=== PATIENT | female | born 1980 | race Caucasian/White ===

== ENCOUNTER 2017-09-21 07:45 | Inpatient (IN) | payer BC, OTHER ==
[2017-09-25 11:51] LABS: APPEARANCE,URINE CLEAR; BILIRUBIN,URINE NEGATIVE (NEGATIVE); COLOR,URINE STRAW; GLUCOSE, URINE NEGATIVE (NEGATIVE); KETONES,URINE NEGATIVE (NEGATIVE); LEUKOCYTE ESTERASE,URINE NEGATIVE (NEGATIVE); NITRITE,URINE NEGATIVE (NEGATIVE); PROTEIN,URINE NEGATIVE (NEGATIVE); URINE SPECIFIC GRAVITY 1.003; UROBILINOGEN,URINE NEGATIVE mg/dL (<2.0)
[2017-09-25 12:43] LABS: URINE AMPHETAMINES SCREEN NEGATIVE; URINE BARBITURATES SCREEN NEGATIVE; URINE BENZODIAZEPINES SCREEN NEGATIVE; URINE COCAINE SCREEN NEGATIVE; URINE MARIJUANA (THC) SCREEN NEGATIVE; URINE METHADONE SCREEN NEGATIVE; URINE PHENCYCLIDINE SCREEN NEGATIVE
[2017-09-25 13:01] LABS: ABSOLUTE EOSINOPHILS # (AUTO) 0.1 10^3/uL (0.0-0.6); ABSOLUTE LYMPHOCYTES (AUTO) 1.8 10^3/uL (0.5-4.7); ABSOLUTE MONOCYTES (AUTO) 0.5 10^3/uL (0.1-1.4); ABSOLUTE NEUT (AUTO) 6.1 10^3/uL (1.7-8.2); BASOPHILS % (AUTO) 0.2 % (0-2); EOSINOPHILS % (AUTO) 0.7 % (0-6); HEMATOCRIT 37.5 % (36.0-47.0); HEMOGLOBIN 12.7 g/dL (12.0-15.5); LYMPHOCYTES % (AUTO) 21.7 % (13-45); MEAN CORPUSCULAR HEMOGLOBIN 29.9 pg (27.0-33.4); MEAN CORPUSCULAR HGB CONC 33.9 g/dL (32.0-36.0); MEAN CORPUSCULAR VOLUME 88 fl (80-97); MONOCYTES % (AUTO) 5.6 % (3-13); PLATELET COUNT 156 10^3/uL (150-450); RED BLOOD COUNT 4.25 10^6/uL (3.72-5.28); RED CELL DISTRIBUTION WIDTH 13.9 % (11.5-14.0); SEGMENTED NEUTROPHILS % (AUTO) 71.8 % (42-78); TOTAL CELLS COUNTED % (AUTO) 100 %; WHITE BLOOD COUNT 8.4 10^3/uL (4.0-10.5)
[2017-09-26] MEDS ORDERED: LACTATED RINGERS 1000 ML IV PRN (05:00)
[2017-09-26] MEDS ORDERED: CEFAZOLIN 1 GM/D5W RTU 1 GM/50 ML RTUPB IV PRN (05:00)
[2017-09-26] MEDS ORDERED: LIDOCAINE 0.5% INJ-PF (5 MG/ML) 50 ML SDV SUBCUT PRN (05:00)
[2017-09-26] MEDS ORDERED: ACETAMINOPHEN 325 MG TABLET ONE (05:27)
[2017-09-26] MEDS ORDERED: CEFAZOLIN 1 GM/D5W RTU 1 GM/50 ML RTUPB IV ONE (05:27)
[2017-09-26] MEDS ORDERED: MIDAZOLAM 2 MG/2 ML INJ ONE (07:28)
[2017-09-26] MEDS ORDERED: FENTANYL CITRATE INJ/PF 100 MCG/2 ML AMPUL ONE (07:28)
[2017-09-26] MEDS ORDERED: OXYTOCIN 10 UNIT/ML VIAL ONE (07:28)
[2017-09-26] MEDS ORDERED: EPHEDRINE SULFATE INJ 50 MG/1 ML AMPULE ONE (07:28)
[2017-09-26] MEDS ORDERED: KETOROLAC TROMETHAMINE INJ/PF 30 MG/1 ML SDV ONE ×2 (07:28→09:39)
[2017-09-26] MEDS ORDERED: OXYTOCIN/NORMAL SALINE 20 UNIT/1,000 ML RTUINJ ONE (07:29)
[2017-09-26] MEDS ORDERED: ACETAMINOPHEN 1,000 MG/100 ML RTUPB IV ONE (07:29)
[2017-09-26] MEDS ORDERED: METHYLERGONOVINE MALEATE INJ/PF 0.2 MG/1 ML AMPULE ONE (07:29)
[2017-09-26] MEDS ORDERED: BUPIVACAINE HCL/DEX-WATER/PF 15 MG/2 ML AMPULE ONE (07:32)
--- NOTE | 2017-09-26 07:38 | EKG REPORT ---
SEVERITY:- BORDERLINE ECG - SINUS RHYTHM NONSPECIFIC ST-T CHANGES- INFERIOR LEADS : Confirmed by: Dewayne Fontanez MD 26-Sep-2017 07:38:10
[2017-09-26] MEDS ORDERED: LIDOCAINE 2% INJ-PF (20 MG/ML) 10 ML AMPUL ONE (07:52)
[2017-09-26] MEDS ORDERED: OXYCODONE-ACETAMINOPHEN 5-325 MG TABLET PO PRN ×3 (08:23→09:00)
[2017-09-26] MEDS ORDERED: FENTANYL CITRATE INJ/PF 100 MCG/2 ML AMPUL IV PRN ×3 (08:23)
[2017-09-26] MEDS ORDERED: MEPERIDINE HCL/PF INJ 25 MG/1 ML DISP.SYRIN IV PRN (08:23)
[2017-09-26] MEDS ORDERED: DIPHENHYDRAMINE HCL 50 MG/ML VIAL IV PRN (08:23)
[2017-09-26] MEDS ORDERED: PROMETHAZINE HCL INJ 25 MG/1 ML VIAL IV PRN ×3 (08:23→09:00)
[2017-09-26] MEDS ORDERED: MORPHINE SULFATE 10 MG/ML INJ IV PRN ×2 (08:23→09:00)
[2017-09-26] MEDS ORDERED: OXYTOCIN/NORMAL SALINE 20 UNIT/1,000 ML RTUINJ IV PRN (09:00)
[2017-09-26] MEDS ORDERED: RINGERS SOLUTION,LACTATED 1,000 ML IV PRN (09:00)
[2017-09-26] MEDS ORDERED: ACETAMINOPHEN 325 MG TABLET PO PRN (09:00)
[2017-09-26] MEDS ORDERED: DIPH/PERTUSS(ACELL)/TETANUS VAC/PF 0.5 ML SYR (>=10YO) IM PRN (09:00)
[2017-09-26] MEDS ORDERED: MEASLES,MUMPS&RUBELLA VACC/PF 0.5 ML VIAL SUBCUT PRN (09:00)
[2017-09-26] MEDS ORDERED: SIMETHICONE 80 MG TAB.CHEW PO PRN (09:00)
--- NOTE | 2017-09-26 09:19 | OPERATIVE REPORT E ---
Operative Report NAME: CIELO LLOYD : 1980 AGE: 37Y DATE OF SURGERY: 09/26/2017 ROOM: LR200 PREOPERATIVE DIAGNOSES: 1. INTRAUTERINE AT 39 WEEKS AND 5 DAYS. 2. PREVIOUS SECTION. POSTOPERATIVE DIAGNOSIS: 1. INTRAUTERINE AT 39 WEEKS AND 5 DAYS. 2. PREVIOUS SECTION. OPERATION: Low transverse hysterotomy section. SURGEON: Juana Holcomb MD ANESTHESIA: Aleisha Rivera MD, with spinal. FINDINGS: Female infant, cephalic presentation with of 9 and 9. ESTIMATED BLOOD LOSS: 600 mL. COMPLICATIONS: None. SPECIMENS: None. PROCEDURE DETAILS: The patient was taken to the operating room, prepared and draped in normal sterile fashion in a supine position with a leftward tilt. A transverse skin incision was made with a scalpel and carried through to the underlying layer of fascia with the same scalpel. The fascia was excised in the midline and extended laterally with Thurman scissors. Fascia was then dissected sharply from the rectus muscle with Thurman, and the rectus muscle was divided sharply with hemostat and the peritoneal cavity was entered bluntly with hemostat. The rectus muscle and peritoneum was then divided with good visualization of the bladder and the uterus. The bladder blade was inserted. The hysterotomy was nicked with a scalpel and extended laterally with surgeon finger fracture. The infant was then delivered atraumatically. The nose and mouth were suctioned with a suction bulb. The cord was clamped and cut, and the was handed off to waiting psychiatric social worker. Cord blood was collected, and the placenta was removed manually. The uterus was exteriorized and cleared of clots and debris. The hysterotomy was closed with 0 Monocryl in a running locked fashion. A second layer of the same suture was used to imbricate to ensure hemostasis. A [id number] stitched was placed on the left lateral corner for hemostasis. The uterus was then returned to the abdomen and the peritoneal cavity was cleared of clots and debris. The rectus muscle and peritoneum were reapproximated with a mattress stitch of 2-0 chromic. The fascia was closed with 0 Vicryl. The subcutaneous layer was closed with plain catgut, and the skin was closed with 4-0 Vicryl. The patient tolerated the procedure well. Sponge, lap and needle counts were correct x2, and the patient was taken to recovery in stable condition. DICTATING PHYSICIAN: JUANA HOLCOMB M.D. [id number] PHY#: [id number] ID: [id number] JOB#: [id number] ACCT: [id number] cc:JUANA HOLCOMB M.D. >
[2017-09-26] MEDS ORDERED: ACETAMINOPHEN 1,000 MG/100 ML RTUPB IV PRN (09:30)
[2017-09-26] MEDS ORDERED: MISOPROSTOL 0.2 MG TABLET ONE (09:39)
[2017-09-26] MEDS ORDERED: [UNRECOGNIZED DRUG - OTHER] PO SCH (10:00)
[2017-09-26] MEDS ORDERED: (PENDING PHARMACY ID) (Ranitidine Hcl [Zantac 150 Mg Tablet] 150 MG) PO SCH (10:00)
[2017-09-26] MEDS: FAMOTIDINE 20 MG TABLET PO SCH (12:37)
[2017-09-26] MEDS: FLUTICASONE/SALMETEROL DISKUS 250-50 MCG/DOSE IH SCH ×2 (12:37→17:41)
[2017-09-26] MEDS: IBUPROFEN 800 MG TABLET PO SCH ×2 (12:37→17:43)
[2017-09-26] MEDS: ASPIRIN 81 MG TABLET, ENT COATED PO SCH (12:37)
[2017-09-26] MEDS: DOCUSATE SODIUM 100 MG CAPSULE PO SCH ×2 (12:37→17:41)
[2017-09-26] MEDS: PRENATAL VITAMIN W DHA CAPSULE PO SCH ×2 (12:37)
[2017-09-26] MEDS: ALBUTEROL SULFATE HFA (90 MCG/PUFF) 8 GM MDI (1 MDI/ER DISP) IH PRN ×4 (12:37→21:23)
[2017-09-26] MEDS: KETOROLAC TROMETHAMINE INJ/PF 30 MG/1 ML SDV IV SCH ×2 (13:08→21:21)
[2017-09-26] MEDS: OXYCODONE-ACETAMINOPHEN 5-325 MG TABLET PO PRN ×2 (13:09→17:43)
[2017-09-26] MEDS ORDERED: ONDANSETRON HCL INJ/PF 4 MG/2 ML SDV ONE (15:14)
[2017-09-26] MEDS: METFORMIN HCL 500 MG TABLET PO SCH (21:22)
[2017-09-27] MEDS: OXYCODONE-ACETAMINOPHEN 5-325 MG TABLET PO PRN ×5 (00:20→22:35)
[2017-09-27] MEDS: IBUPROFEN 800 MG TABLET PO SCH ×4 (00:22→18:14)
[2017-09-27] MEDS: ALBUTEROL SULFATE HFA (90 MCG/PUFF) 8 GM MDI (1 MDI/ER DISP) IH PRN ×6 (01:08→22:38)
[2017-09-27] MEDS: KETOROLAC TROMETHAMINE INJ/PF 30 MG/1 ML SDV IV SCH (05:55)
[2017-09-27 07:22] LABS: HEMATOCRIT 29.2 % (36.0-47.0); MEAN CORPUSCULAR HEMOGLOBIN 30.9 pg (27.0-33.4); MEAN CORPUSCULAR HGB CONC 34.6 g/dL (32.0-36.0); MEAN CORPUSCULAR VOLUME 89 fl (80-97); PLATELET COUNT 143 10^3/uL (150-450); RED BLOOD COUNT 3.27 10^6/uL (3.72-5.28); WHITE BLOOD COUNT 8.4 10^3/uL (4.0-10.5)
[2017-09-27 07:28] LABS: HEMOGLOBIN 10.1 g/dL (12.0-15.5)
[2017-09-27] MEDS: FLUTICASONE/SALMETEROL DISKUS 250-50 MCG/DOSE IH SCH ×2 (09:31→18:14)
[2017-09-27] MEDS: DOCUSATE SODIUM 100 MG CAPSULE PO SCH ×2 (09:31→18:14)
[2017-09-27] MEDS: ASPIRIN 81 MG TABLET, ENT COATED PO SCH (09:31)
[2017-09-27] MEDS: PRENATAL VITAMIN W DHA CAPSULE PO SCH ×2 (09:33→09:34)
[2017-09-27] MEDS: FAMOTIDINE 20 MG TABLET PO SCH (09:33)
--- NOTE | 2017-09-27 17:48 | PDOC PROGRESS REPORT ---
Subjective-OB Progress Note for:: 09/27/17 Subjective: 37yo G3 now P2 s/p repeat delivery ppd 1. Ambulating, voiding and without difficulty. Bonding well with baby. Denies any concerns at this time. Physical Exam (OB) Vital Signs: Temp Pulse Resp BP Pulse Ox 98.2 F 72 17 107/57 L 98 09/27/17 08:16 09/27/17 08:16 09/27/17 08:16 09/27/17 08:16 09/27/17 08:16 Intake & Output 09/26/17 09/27/17 09/28/17 06:59 06:59 06:59 Intake Total 2000 500 Output Total 2100 Balance 1999 -1600 Weight 76.2 kg - General General Appearance: Appears well In distress: None - PIH/Pre-Eclampsia Headache: Absent Epigastric Pain: No Visual Changes: No - Dressing Removed: No Incision: Dressing, Well Approximated - Lochia Lochia Amount: Scant < 10 ml Lochia Color: Rubra/Red - Abdomen Description: Tender, Soft, Round Hernia Present: No Fundal Description: Firm, Midline Fundal Height: u/u - u/2 - Respiratory Respiratory Status: No respiratory distress - Extremities Upper extremity: Normal inspection Lower extremities: Normal inspection Ankle: Normal Foot: Normal - Neurological Cognition: Normal Orientation: AAOx4 - Psychological Associated symptoms: Normal affect, Normal mood Objective-Diagnostic Laboratory: 09/27/17 06:39 09/27/17 06:39 WBC 8.4 RBC 3.27 L Hgb 10.1 L D Hct 29.2 L MCV 89 MCH 30.9 MCHC 34.6 RDW 14.0 Plt Count 143 L Assessment and Plan(PN) - Assessment and Plan (1) Status post repeat low transverse section Is this a current diagnosis for this admission?: Yes Plan: Routine pp care (2) Acute blood loss anemia Is this a current diagnosis for this admission?: Yes Plan: Increase dietary iron and FeSO4 BID - Time Spent with Patient Time with patient: Less than 15 minutes Medications reviewed and adjusted accordingly: Yes - Disposition Anticipated Discharge: Home Within: within 24 hours
[2017-09-27] MEDS: METFORMIN HCL 500 MG TABLET PO SCH (22:37)
[2017-09-28] MEDS: IBUPROFEN 800 MG TABLET PO SCH ×3 (00:47→12:56)
[2017-09-28] MEDS: ALBUTEROL SULFATE HFA (90 MCG/PUFF) 8 GM MDI (1 MDI/ER DISP) IH PRN ×3 (03:07→09:22)
[2017-09-28] MEDS: OXYCODONE-ACETAMINOPHEN 5-325 MG TABLET PO PRN (07:47)
--- NOTE | 2017-09-28 08:51 | PDOC DISCHARGE SUMMARY ---
Final Diagnosis Discharge Date: 09/28/17 - Final Diagnosis (1) Acute blood loss anemia Is this a current diagnosis for this admission?: Yes (2) Status post repeat low transverse section Is this a current diagnosis for this admission?: Yes Discharge Data - Discharge Medication Prescriptions: Oxycodone HCl/Acetaminophen [Percocet 5-325 mg Tablet] 2 tab PO Q4HP PRN #30 tablet PRN Reason: Docusate Sodium [Colace 100 mg Capsule] 100 mg PO BID #60 capsule Ferrous Sulfate 325 mg PO BID #60 tablet Ibuprofen [Motrin 800 mg Tablet] 800 mg PO Q6 #60 tablet Home Medications: Prenatabs Obn Tablet 1 cap PO DAILY 03/22/11 Albuterol Sulfate [Proair HFA] 1 - 2 puff IH Q4 PRN 09/25/17 Aspirin [Adult Aspirin] 81 mg PO BID 09/25/17 Fluticasone/Salmeterol [Advair 250-50 Diskus 28 dose] 1 inh IH BID 09/25/17 Prochlorperazine Maleate 10 mg PO PRN PRN 09/25/17 Ranitidine HCl [Zantac 150 mg Tablet] 150 mg PO PRN PRN 09/25/17 Docusate Sodium [Colace 100 mg Capsule] 100 mg PO BID #60 capsule 09/28/17 Ferrous Sulfate 325 mg PO BID #60 tablet 09/28/17 Ibuprofen [Motrin 800 mg Tablet] 800 mg PO Q6 #60 tablet 09/28/17 Oxycodone HCl/Acetaminophen [Percocet 5-325 mg Tablet] 2 tab PO Q4HP PRN #30 tablet 09/28/17 Gestational Age: 39.5 Reason(s) for Admission: Ceasarean Section-Repeat Procedures: NST Intrapartum Procedure(s): : Low Cervical, Transverse - Data Baby 1 Male at 1 minute: 9 at 5 minutes: 9 Home with Mother: Yes Complications: No - Diagnosis Test Laboratory: Temp Pulse Resp BP Pulse Ox 98.6 F 76 18 125/65 97 09/28/17 04:26 09/28/17 04:26 09/28/17 04:26 09/28/17 04:26 09/28/17 04:26 06/11/18 06/11/18 06/13/18 11:19 12:25 06:39 RBC 4.25 3.27 L Hgb 12.7 10.1 L D Hct 37.5 29.2 L Urine Opiates Screen NEGATIVE - Discharge information/Instructions Discharge Activity: Activity As Tolerated, Pelvic Rest, No tub bath Discharge Diet: Regular Disposition: HOME, SELF-CARE Follow up with: [facility] in: 1, Days
[2017-09-28] MEDS: DOCUSATE SODIUM 100 MG CAPSULE PO SCH (09:14)
[2017-09-28] MEDS: ASPIRIN 81 MG TABLET, ENT COATED PO SCH (09:14)
[2017-09-28] MEDS: FLUTICASONE/SALMETEROL DISKUS 250-50 MCG/DOSE IH SCH (09:14)
[2017-09-28] MEDS: PRENATAL VITAMIN W DHA CAPSULE PO SCH ×2 (09:14→09:22)
[2017-09-28] MEDS: FAMOTIDINE 20 MG TABLET PO SCH (09:14)
[2017-09-28 11:40] VITALS: BP 110/58
== END 2017-09-28 13:40 | disposition home or self-care (01) | DRG 765 ==
LOC: EEVIPCON 09-26 05:11 → LR 09-26 05:11 → 2S 09-26 11:56
PROVIDERS: ADMIT Obstetrics & Gynecology; ATTEND Obstetrics & Gynecology
PROC: 10D00Z1 Extraction of Products of Conception, Low, Open Approach (ICD-10-PCS; principal; 2017-09-26 07:45)
DX: O34.211 Maternal care for low transverse scar from previous cesarean delivery (principal); D62 Acute posthemorrhagic anemia; O99.02 Anemia complicating childbirth; O13.4 Gestational [pregnancy-induced] hypertension without significant proteinuria, complicating childbirth; O99.52 Diseases of the respiratory system complicating childbirth; J45.998 Other asthma; N85.8 Other specified noninflammatory disorders of uterus; Z3A.39 39 weeks gestation of pregnancy; Z37.0 Single live birth
CPT/HCPCS: 1961; 36415; 59025; 80307; 81001; 85025; 85027; 86850; 86900; 86901; 93005; 93010; 94799; J0131; J0690; J1885; J2210; J2250; J2405; J2590; J3010; J3490

== ENCOUNTER 2019-03-02 10:01 | Observation (INO) | payer BC, OTHER ==
[~2019-03-02 10:01] MED LIST: ROCURONIUM BROMIDE INJ 50 MG/5 ML VIAL IV ONE; SUCCINYLCHOLINE CHLORIDE INJ 200 MG/10 ML VIAL ONE
[2019-03-02] MEDS ORDERED: FENTANYL CITRATE INJ/PF 100 MCG/2 ML AMPUL IV ONE (10:17)
[2019-03-02] MEDS ORDERED: ONDANSETRON HCL INJ/PF 4 MG/2 ML SDV IV ONE (10:17)
--- NOTE | 2019-03-02 10:22 | ER Document Report ---
ED Medical Screen (RME) - General Chief Complaint: Flank Pain Stated Complaint: RIGHT FLANK PAIN, NAUSEA, VOMITING Time Seen by Provider: 03/02/19 10:13 Primary Care Provider: CELE HOLCOMB MD [Primary Care Provider] - Follow up as needed Notes: Healthy 38-year-old female presents the emergency department with severe, acute right lower quadrant abdominal pain that started at midnight last night. Patient states that it woke her up from sleep and she put a heating pad on it and tried to take a hot bath. About 45 minutes prior to arrival patient's pain significantly increased and she is in acute distress and having difficulty walking. No abdominal surgical history, denies , she is on the NuvaRing, complained of fevers and chills, complains of nausea and vomiting. Exam: Nontoxic appearing in acute distress, patient is holding her hand over her right lower quadrant. Lungs are clear to auscultation and patient is a regular cardiac rate and rhythm, abdominal exam deferred in triage I have greeted and performed a rapid initial assessment of this patient. A comprehensive ED assessment and evaluation of the patient, analysis of test results and completion of medical decision making process will be conducted by an additional ED providers. TRAVEL OUTSIDE OF THE [place] IN LAST 30 DAYS: No - Related Data Allergies/Adverse Reactions: cats, ragweed, dust mites Allergy (Uncoded 03/02/19 10:18) Home Medications: . metformin. advair Past Medical History - Social History Chew tobacco use (# tins/day): No Frequency of alcohol use: Occasional Drug Abuse: None - Past Medical History Cardiac Medical History: Reports: Hx Coronary Artery Disease, Hx Hypertension - Gestational HTN first Denies: Hx Heart Attack, Hx Pulmonary Embolism, Hx Heart Murmur Pulmonary Medical History: Reports: Hx Asthma Denies: Hx Bronchitis, Hx COPD, Hx Pneumonia, Hx Sleep Apnea, Hx Tuberculosis Neurological Medical History: Reports: Hx Migraine Endocrine Medical History: Denies: Hx Hyperthyroidism, Hx Hypothyroidism Renal/ Medical History: Reports: Hx Ovarian Cysts - PCOS. Denies: Hx Kidney Stones, Hx Pelvic Inflammatory Disease Malignancy Medical History: Denies: Hx Breast Cancer, Hx Cervical Cancer, Hx Ovarian Cancer GI Medical History: Reports: Hx Gastroesophageal Reflux Disease - . Denies: Hx Hiatal Hernia, Hx Ulcer Musculoskeltal Medical History: Denies Hx Arthritis, Denies Hx Fibromyalgia Psychiatric Medical History: Denies: Hx Bipolar Disorder, Hx Depression, Hx Post Traumatic Stress Disorder, Hx Schizophrenia Traumatic Medical History: Denies: Hx Fractures Infectious Medical History: Denies: Hx HIV Past Surgical History: Reports: Hx Section - Immunizations Hx Diphtheria, Pertussis, Tetanus Vaccination: Yes Physical Exam - Vital signs Vitals: Temp Pulse Resp BP Pulse Ox 97.9 F 92 18 124/77 100 03/02/19 10:02 03/02/19 10:02 03/02/19 10:02 03/02/19 10:02 03/02/19 10:02 Course - Vital Signs Vital signs: Temp Pulse Resp BP Pulse Ox 97.9 F 92 18 124/77 100 03/02/19 10:02 03/02/19 10:02 03/02/19 10:02 03/02/19 10:02 03/02/19 10:02 Doctor's Discharge - Discharge Referrals: CELE HOLCOMB MD [Primary Care Provider] - Follow up as needed
[2019-03-02 10:50] LABS: APPEARANCE,URINE SLIGHTLY-CLOUDY; BILIRUBIN,URINE NEGATIVE (NEGATIVE); COLOR,URINE YELLOW; GLUCOSE, URINE NEGATIVE (NEGATIVE); KETONES,URINE 20 mg/dL (NEGATIVE); LEUKOCYTE ESTERASE,URINE NEGATIVE (NEGATIVE); NITRITE,URINE NEGATIVE (NEGATIVE); PROTEIN,URINE 30 mg/dL (NEGATIVE); URINE SPECIFIC GRAVITY 1.028; UROBILINOGEN,URINE NEGATIVE mg/dL (<2.0)
[2019-03-02 11:08] LABS: ABSOLUTE LYMPHOCYTES (AUTO) 1.4 10^3/uL (0.5-4.7); ABSOLUTE MONOCYTES (AUTO) 0.7 10^3/uL (0.1-1.4); ABSOLUTE NEUT (AUTO) 9.5 10^3/uL (1.7-8.2); BASOPHILS % (AUTO) 0.4 % (0-2); EOSINOPHILS % (AUTO) 0.3 % (0-6); HEMATOCRIT 38.6 % (36.0-47.0); HEMOGLOBIN 13.4 g/dL (12.0-15.5); LYMPHOCYTES % (AUTO) 11.6 % (13-45); MEAN CORPUSCULAR HEMOGLOBIN 30.9 pg (27.0-33.4); MEAN CORPUSCULAR HGB CONC 34.6 g/dL (32.0-36.0); MEAN CORPUSCULAR VOLUME 89 fl (80-97); MONOCYTES % (AUTO) 5.6 % (3-13); PLATELET COUNT 231 10^3/uL (150-450); RED BLOOD COUNT 4.32 10^6/uL (3.72-5.28); SEGMENTED NEUTROPHILS % (AUTO) 82.1 % (42-78); TOTAL CELLS COUNTED % (AUTO) 100 %; WHITE BLOOD COUNT 11.6 10^3/uL (4.0-10.5)
[2019-03-02 11:29] LABS: ALBUMIN 4.7 g/dL (3.5-5.0); ALKALINE PHOSPHATASE 68 U/L (38-126); ANION GAP 12 (5-19); ASPARTATE AMINO TRANSFERASE 25 U/L (14-36); BILIRUBIN,TOTAL 0.7 mg/dL (0.2-1.3); BLOOD UREA NITROGEN 13 mg/dL (7-20); CALCIUM 9.2 mg/dL (8.4-10.2); CARBON DIOXIDE 20 mmol/L (22-30); CHLORIDE 106 mmol/L (98-107); GLUCOSE 110 mg/dL (75-110); TOTAL PROTEIN 7.8 g/dL (6.3-8.2)
--- NOTE | 2019-03-02 12:11 | ER Document Report ---
ED General - General Chief Complaint: Abdominal Pain Stated Complaint: RIGHT FLANK PAIN, NAUSEA, VOMITING Time Seen by Provider: 03/02/19 10:13 Notes: 38-year-old female presents with right lower quadrant pain that started approximately midnight with nausea/vomiting. States the pain is worse when she stretches out, it is better when she curls up. Patient states subjective fever/chills. States pain medicine given to her in triage has helped take "the edge off." States nausea improved with medicine given to her in triage. Patient denies diarrhea, constipation, urinary symptoms, vaginal bleeding, vaginal discharge. TRAVEL OUTSIDE OF THE [place] IN LAST 30 DAYS: No - Related Data Allergies/Adverse Reactions: cats, ragweed, dust mites Allergy (Uncoded 03/02/19 10:18) Home Medications: . metformin. advair Past Medical History - Social History Smoking Status: Never Smoker Chew tobacco use (# tins/day): No Frequency of alcohol use: Occasional Drug Abuse: None Family History: None Patient has suicidal ideation: No Patient has homicidal ideation: No - Past Medical History Cardiac Medical History: Reports: Hx Coronary Artery Disease, Hx Hypertension - Gestational HTN first Denies: Hx Heart Attack, Hx Pulmonary Embolism, Hx Heart Murmur Pulmonary Medical History: Reports: Hx Asthma Denies: Hx Bronchitis, Hx COPD, Hx Pneumonia, Hx Sleep Apnea, Hx Tuberculosis Neurological Medical History: Reports: Hx Migraine Endocrine Medical History: Denies: Hx Hyperthyroidism, Hx Hypothyroidism Renal/ Medical History: Reports: Hx Ovarian Cysts - PCOS. Denies: Hx Kidney Stones, Hx Pelvic Inflammatory Disease Malignancy Medical History: Denies: Hx Breast Cancer, Hx Cervical Cancer, Hx Ovarian Cancer GI Medical History: Reports: Hx Gastroesophageal Reflux Disease - . Denies: Hx Hiatal Hernia, Hx Ulcer Musculoskeletal Medical History: Denies Hx Arthritis, Denies Hx Fibromyalgia Psychiatric Medical History: Denies: Hx Bipolar Disorder, Hx Depression, Hx Post Traumatic Stress Disorder, Hx Schizophrenia Traumatic Medical History: Denies: Hx Fractures Infectious Medical History: Denies: Hx HIV Past Surgical History: Reports: Hx Section - Immunizations Hx Diphtheria, Pertussis, Tetanus Vaccination: Yes Review of Systems - Review of Systems Notes: Constitutional: Negative for fever. HENT: Negative for sore throat. Eyes: Negative for visual changes. Cardiovascular: Negative for chest pain. Respiratory: Negative for shortness of breath. Gastrointestinal: Positive for abdominal pain, nausea, vomiting. Negative for diarrhea. Genitourinary: Negative for dysuria. Musculoskeletal: Negative for back pain. Skin: Negative for rash. Neurological: Negative for headaches, weakness or numbness. 10 point ROS negative except as marked above and in HPI. Physical Exam - Vital signs Vitals: Temp Pulse Resp BP Pulse Ox 97.9 F 92 18 124/77 100 03/02/19 10:02 03/02/19 10:02 03/02/19 10:02 03/02/19 10:02 03/02/19 10:02 - Notes Notes: GENERAL: Well-appearing, well-nourished and mildly uncomfortable. HEAD: Atraumatic, normocephalic. EYES: Extraocular movements intact, sclera anicteric, conjunctiva are normal. NECK: Normal range of motion, supple without lymphadenopathy or JVD. LUNGS: Breath sounds clear to auscultation bilaterally and equal. No wheezes rales or rhonchi. HEART: Regular rate and rhythm without murmurs, rubs or gallops. ABDOMEN: Soft, tenderness to right lower quadrant with guarding and rebound. No masses appreciated. No CVA tenderness. : No adnexal tenderness bilaterally. No vaginal discharge. No cervical motion tenderness. EXTREMITIES: Normal range of motion, no pitting or edema. No clubbing or cyanos is. NEUROLOGICAL: Cranial nerves II through XII grossly intact. Normal speech, normal gait. PSYCH: Normal mood, normal affect. SKIN: Warm, Dry, normal turgor, no rashes or lesions noted. Course - Re-evaluation Re-evalutation: 03/02/19 Patient is an afebrile, well-hydrated, 38-year-old female who presents to the ED with RLQ pain. Abdomen is soft, tenderness to RLQ with rebound/guarding. 03/02/19 12:47 Radiologist called, acute appendicitis on CT. Dr. Hernandez consulted who looked at CT scan. Dr. Hernandez to evaluate pt. - Vital Signs Vital signs: Temp Pulse Resp BP Pulse Ox 97.9 F 92 18 124/77 100 03/02/19 10:02 03/02/19 10:02 03/02/19 10:02 03/02/19 10:02 03/02/19 10:02 - Laboratory Result Diagrams: 03/02/19 10:50 03/02/19 10:50 Laboratory results interpreted by me: 03/02/19 03/02/19 03/02/19 10:25 10:50 10:50 WBC 11.6 H Lymph % (Auto) 11.6 L Absolute Neuts (auto) 9.5 H Seg Neutrophils % 82.1 H Carbon Dioxide 20 L Lipase 16.2 L Urine Protein 30 H Urine Ketones 20 H Discharge - Discharge Clinical Impression: Acute appendicitis Qualifiers: Acute appendicitis type: unspecified acute appendicitis type Qualified Code(s): K35.80 - Unspecified acute appendicitis Condition: Stable Disposition: ADMITTED INPATIENT Admitting Provider: Surgicalist Unit Admitted: OR
[2019-03-02] MEDS ORDERED: MORPHINE SULFATE 10 MG/ML INJ IV ONE (12:30)
--- NOTE | 2019-03-02 12:47 | RADIOLOGY REPORT (SQ) ---
EXAM DESCRIPTION: CT ABD/PELVIS WITH IV ONLY COMPLETED DATE/TIME: 03/02/2019 12:15 pm REASON FOR STUDY: Acute RLQ pain, no abd surg hx COMPARISON: None. TECHNIQUE: CT scan of the abdomen and pelvis performed using helical scanning technique with dynamic intravenous contrast injection. No oral contrast. Images reviewed with lung, soft tissue, and bone windows. Reconstructed coronal and sagittal MPR images reviewed. Delayed images for evaluation of the urinary system also acquired. All images stored on PACS. All CT scanners at this facility use dose modulation, iterative reconstruction, and/or weight based d osing when appropriate to reduce radiation dose to as low as reasonably achievable (ALARA). [facility]: Dose Right [facility]: CareDose [facility]: Dose Right [facility]: Teradose 4D [facility]: [employer] CONTRAST TYPE AND DOSE: contrast/concentration: Isovue 350.00 mg/ml; Total Contrast Delivered: 82.0 ml; Total Saline Delivered: 68.0 ml RENAL FUNCTION: Creatinine 0.6 RADIATION DOSE: CT Rad equipment meets quality standard of care and radiation dose reduction techniq ues were employed. CTDIvol: 7.2 - 9.7 mGy. DLP: 865 mGy-cm.. LIMITATIONS: None. FINDINGS: On axial images 52 through 67, and coronal images 27 through 35, the appendix is enlarged, filled with fluid, with extensive surrounding periappendiceal inflammation in the mesenteries and sm all amount of adjacent periappendiceal free fluid. Findings are worrisome for acute appendicitis, re sults called to Dr. Pena. No pelvic cul-de-sac free fluid. No free intraperitoneal air. No bowel obstruction. LOWER CHEST: No significant findings. No nodules or infiltrates. LIVER: Normal size. No masses. No dilated ducts. SPLEEN: Normal size. No focal lesions. PANCREAS: No masses. No significant calcifications. No adjacent inflammation or peripancreatic fluid collections. Pancreatic duct not dilated. GALLBLADDER: No identified stones by CT criteria. No inflammatory changes to suggest cholecystitis. ADRENAL GLANDS: No significant masses or asymmetry. RIGHT KIDNEY AND URETER: No solid masses. No significant calcifications. No hydronephrosis or hyd roureter. LEFT KIDNEY AND URETER: No solid masses. No significant calcifications. No hydronephrosis or hydr oureter. AORTA AND VESSELS: No aneurysm. No dissection. Renal arteries, SMA, celiac without stenosis. RETROPERITONEUM: No retroperitoneal adenopathy, hemorrhage or masses. BOWEL AND PERITONEAL CAVITY: As above APPENDIX: As above PELVIS: No mass. No free fluid. Normal bladder. Normal size female pelvic organs. Vaginal contrace ptive ring ABDOMINAL WALL: No masses. No hernias. BONES: No significant or acute findings. OTHER: No other significant finding. IMPRESSION: Acute appendicitis. Report called to the attending physician in the emergency room TECHNICAL DOCUMENTATION: JOB ID: [id number] Quality ID # [id number]: Final reports with documentation of one or more dose reduction techniques (e.g., Au tomated exposure control, adjustment of the mA and/or kV according to patient size, use of iterative reconstruction technique) 2010 [employer]- All Rights Reserved Reading location - IP/workstation name: [email or web address]
[2019-03-02] MEDS ORDERED: CEFAZOLIN 1 GM/D5W RTU 50 ML IV ONE (13:11)
[2019-03-02] MEDS ORDERED: KETOROLAC TROMETHAMINE 60 MG/2 ML SDV ONE (13:12)
[2019-03-02] MEDS ORDERED: DEXAMETHASONE SOD PHOSPHATE INJ 4 MG/1 ML VIAL ONE (13:12)
[2019-03-02] MEDS ORDERED: MIDAZOLAM 2 MG/2 ML INJ ONE (13:12)
[2019-03-02] MEDS ORDERED: FENTANYL CITRATE INJ/PF 100 MCG/2 ML AMPUL ONE (13:12)
[2019-03-02] MEDS ORDERED: ONDANSETRON HCL INJ/PF 4 MG/2 ML SDV ONE (13:12)
[2019-03-02] MEDS ORDERED: PROPOFOL INJ 200 MG/20 ML VIAL IV ONE (13:13)
--- NOTE | 2019-03-02 13:16 | PDOC H&P ---
History of Present Illness Admission Date/PCP: 03/02/19 12:53 CELE HOLCOMB MD Patient complains of: Abdominal pain History of Present Illness: CIELO LLOYD is a 38 year old female Presents emergency department via ground rescue complaining of acute onset abdominal pain late last night-early this morning. On further inquiry, patient states she is been having some crampy abdominal pain for 3 days. She has had nausea, vomiting and a loose stool earlier this morning. She denies history of trauma, previous episodes of abdominal pain, or contact with people with gastroenteritis. She was seen in the emergency department where she is found to have right lower quadrant tenderness and a mild leukocytosis. CT scan of the abdomen pelvis with IV contrast only revealed findings consistent with acute appendicitis. Surgery was consulted, patient was evaluated, advised admission.. Past Medical History Medical History: None Cardiac Medical History: Reports: Coronary Artery Disease, Hypertension - Gestational HTN first Denies: Myocardial Infarction, Pulmonary Embolism, Heart Murmur Pulmonary Medical History: Reports: Asthma Denies: Bronchitis, Chronic Obstructive Pulmonary Disease (COPD), Pneumonia, Sleep Apnea, Tuberculosis Neurological Medical History: Reports: Migraine Endocrine Medical History: Denies: Hyperthyroidism, Hypothyroidism Malignancy Medical History: Denies: Breast Cancer, Cervical Cancer, Ovarian Cancer GI Medical History: Reports: Gastroesophageal Reflux Disease - Denies: Hiatal Hernia Musculoskeltal Medical History: Denies: Arthritis, Fibromyalgia Psychiatric Medical History: Denies: Bipolar Disorder, Depression, Post Traumatic Stress Disorder Hematology: Reports: Anemia Denies: Hemophilia, Sickle Cell Disease Infectious Medical History: Denies: HIV Past Surgical History Past Surgical History: Reports: Section - section x2 Social History Information Source: Patient Smoking Status: Never Smoker Electronic Cigarette use?: No Frequency of Alcohol Use: None Hx Recreational Drug Use: No Family History Family History: None Parental Family History Reviewed: Yes Children Family History Reviewed: Yes Sibling(s) Family History Reviewed.: Yes Medication/Allergy Home Medications: Etonogestrel/Ethinyl Estradiol [Nuvaring Vaginal Ring] 1 each VG ASDIR PRN 03/02/19 Fluticasone/Salmeterol [Advair 100-50 Diskus 14 Dose/Diskus] 1 inh IH Q12 1 05/02/18 Metformin HCl [Glucophage 500 mg Tablet] 500 mg PO QHS 03/02/19 Vit 87/Iron/Folic/Dha [Prenate Mini Softgel] 1 cap PO DAILY 03/02/19 Allergies/Adverse Reactions: cats, ragweed, dust mites Allergy (Uncoded 03/02/19 10:18) Review of Systems Constitutional: PRESENT: as per HPI Eyes: ABSENT: visual disturbances Ears: ABSENT: hearing changes Respiratory: ABSENT: cough, hemoptysis Gastrointestinal: PRESENT: as per HPI Genitourinary: ABSENT: dysuria, hematuria Musculoskeletal: ABSENT: joint swelling Integumentary: ABSENT: rash, wounds Neurological: ABSENT: abnormal gait, abnormal speech, confusion, dizziness, focal weakness, syncope Physical Exam Vital Signs: Temp Pulse Resp BP Pulse Ox 97.9 F 92 18 124/77 100 03/02/19 10:02 03/02/19 10:02 03/02/19 10:02 03/02/19 10:02 03/02/19 10:02 Intake & Output 03/01/19 03/02/19 03/03/19 06:59 06:59 06:59 Weight 71.668 kg General appearance: PRESENT: other - Distress Head exam: PRESENT: normocephalic Eye exam: PRESENT: EOMI Mouth exam: PRESENT: dry mucosa Neck exam: PRESENT: full ROM Respiratory exam: PRESENT: clear to auscultation safia Cardiovascular exam: PRESENT: RRR Pulses: PRESENT: normal carotid pulses, normal radial pulses, normal femoral pulses, normal dorsalis pedis pul GI/Abdominal exam: PRESENT: other - Exquisitely tender right lower quadrant with guarding; patient with knees bent and hips flexed Rectal exam: PRESENT: deferred Extremities exam: PRESENT: full ROM Musculoskeletal exam: PRESENT: full ROM Neurological exam: PRESENT: awake, oriented to person, oriented to time, oriented to situation Psychiatric exam: PRESENT: appropriate affect Skin exam: PRESENT: dry Results Laboratory Results: 03/02/19 10:50 03/02/19 10:50 03/02/19 03/02/19 03/02/19 10:25 10:50 10:50 WBC 11.6 H RBC 4.32 Hgb 13.4 Hct 38.6 MCV 89 MCH 30.9 MCHC 34.6 RDW 13.0 Plt Count 231 Seg Neutrophils % 82.1 H Sodium 138.0 Potassium 4.0 Chloride 106 Carbon Dioxide 20 L Anion Gap 12 BUN 13 Creatinine 0.57 Est GFR ( Amer) > 60 Glucose 110 Calcium 9.2 Total Bilirubin 0.7 AST 25 Alkaline Phosphatase 68 Total Protein 7.8 Albumin 4.7 Lipase 16.2 L Urine Color YELLOW Urine Appearance SLIGHTLY-CLOUDY Urine pH 6.0 Ur Specific North 1.028 Urine Protein 30 H Urine Glucose (UA) NEGATIVE Urine Ketones 20 H Urine Blood NEGATIVE Urine Nitrite NEGATIVE Ur Leukocyte Esterase NEGATIVE Urine WBC (Auto) 1 Urine RBC (Auto) 2 Impressions: Abdomen/Pelvis CT 03/02/19 10:19 IMPRESSION: Acute appendicitis. Report called to the attending physician in the emergency room Assessment & Plan - Diagnosis (1) Acute appendicitis Qualifiers: Acute appendicitis type: unspecified acute appendicitis type Is this a current diagnosis for this admission?: Yes Plan: Impression: Acute appendicitis based on clinical history, physical exam elevated white blood cell count and abnormally dilated appendix with appendiceal stranding on CT scan. Recommendations: 1. Admit to surgical service, keep n.p.o., IV fluids and intravenous antibiotics. 2. Set patient up for laparoscopic, possible open appendectomy, today, also more hospital, general anesthesia. Mechanics of the operation, as well as an explanation of the risk benefits alternatives including bleeding, infection, need to convert to an open procedure were all discussed with the patient. She understands and agrees to proceed. (2) Dehydration Is this a current diagnosis for this admission?: Yes - Time Time Spent: 50 to 70 Minutes Critical Time spent with patient: 15-24 minutes Medications reviewed and adjusted accordingly: Yes Anticipated discharge: Home - Inpatient Certification Based on my medical assessment, after consideration of the patient's comorbidities, presenting symptoms, or acuity I expect that the services needed warrant INPATIENT care.: Yes I certify that my determination is in accordance with my understanding of Medicare's requirements for reasonable and necessary INPATIENT services [42 CFR 412.3e].: Yes Medical Necessity: Need For IV Fluids, Need for Pain Control, Need for IV Antibiotics, Need for Surgery
[2019-03-02] MEDS ORDERED: CEFAZOLIN SODIUM 1 GM in DEXTROSE 5%-WATER 50 ML IV PRN (13:22)
[2019-03-02] MEDS: RINGERS SOLUTION,LACTATED 1,000 ML IV PRN ×2 (13:23→19:56)
[2019-03-02] MEDS ORDERED: BUPIVACAINE HCL 0.25 % INJ/PF (2.5 MG/1 ML) 30 ML VIAL ONE (13:26)
[2019-03-02] MEDS ORDERED: CEFAZOLIN INJ 1 GM VIAL ONE (13:26)
[2019-03-02] MEDS ORDERED: SCOPOLAMINE HYDROBROMIDE 1.5 MG PATCH.TD72 ONE (14:11)
[2019-03-02] MEDS ORDERED: OXYCODONE-ACETAMINOPHEN 5-325 MG TABLET PO PRN ×2 (14:33)
[2019-03-02] MEDS ORDERED: MEPERIDINE HCL/PF INJ 25 MG/1 ML DISP.SYRIN IV PRN (14:33)
[2019-03-02] MEDS ORDERED: ONDANSETRON HCL INJ/PF 4 MG/2 ML SDV IV PRN ×2 (14:33→14:53)
[2019-03-02] MEDS ORDERED: FENTANYL CITRATE INJ/PF 100 MCG/2 ML AMPUL IV PRN ×3 (14:33)
[2019-03-02] MEDS ORDERED: PROMETHAZINE HCL INJ 25 MG/1 ML VIAL IV PRN ×2 (14:33)
[2019-03-02] MEDS ORDERED: DIPHENHYDRAMINE HCL 50 MG/ML VIAL IV PRN (14:33)
[2019-03-02] MEDS ORDERED: MORPHINE SULFATE 10 MG/ML INJ IV PRN (14:33)
[2019-03-02] MEDS ORDERED: SUGAMMADEX SODIUM 200 MG/2 ML SDV IV ONE (14:42)
[2019-03-02] MEDS ORDERED: KETOROLAC TROMETHAMINE 10 MG TABLET PO PRN (14:53)
[2019-03-02] MEDS ORDERED: KETOROLAC TROMETHAMINE INJ/PF 30 MG/1 ML SDV IV PRN (14:53)
--- NOTE | 2019-03-02 15:01 | Operative Report ---
Operative Report DATE OF SURGERY: 03/02/19 PREOPERATIVE DIAGNOSIS: Acute appendicitis POSTOPERATIVE DIAGNOSIS: Acute suppurative appendicitis OPERATION: Laparoscopic appendectomy SURGEON: CAYLA BENNETT ANESTHESIA: GA TISSUE REMOVED OR ALTERED: 1 appendix COMPLICATIONS: None ESTIMATED BLOOD LOSS: Scant INTRAOPERATIVE FINDINGS: See below PROCEDURE: The patient was taken from the preop holding her to the main operating room general anesthesia was induced. Schwartz catheter was inserted with return of clear yellow urine. Left arm was tucked at patient's side, the abdomen exposed, prepped and draped in sterile fashion with Betadine. Instrumentation for laparoscopic appendectomy was set up. Surgical plan surgical timeout were conducted. Sites for 3 compartment appendectomy were chosen above the umbilicus, in the suprapubic area, left lower quadrant. All 3 sites were anesthetized with approximately 15 cc of 1% plain lidocaine. A super umbilical vertical incision made with a knife, Veress needle inserted the peritoneal cavity pneumoperitoneum was established. Veress needle was removed, a 5 mm port was inserted a 5 mm flexible Endo I scope was inserted. There is no evidence of vascular or visceral injury. Under direct visualization 2 additional ports were placed 1 5 mm in the suprapubic position and a third port, a 12 mm, and the left lower quadrant. Findings were significant for acute separative appendicitis without perforation. There was approximately 5 to 10 cc of purulent discharge around the appendix. The appendix was inferiorly and laterally to the cecum. The ileo cecal connection was elevated, and appendix and mesoappendix brought into the free peritoneal space. Photos were taken. The dissector was used to open a hole in the mesoappendix adjacent to the base the appendix. We then brought onto the field a 45 mm Endo JORGE stapler, and deployed it across the base of the appendix thereby amputating the appendix. A second blue load firing of the Endo JORGE stapler was then activated, and fired across the mesoappendix all under excellent visualization. The appendix was placed in an Endobag and brought out of the patient to the left lower quadrant port site. The specimen was sent to pathology for permanent analysis. We returned to the peritoneal cavity checked for bleeding especially from the staple line there was none. Photos were taken. A few cc of irrigation were used to clear out the right lower quadrant and pelvic cavities. The right tube and ovary and uterus were visualized, felt to be normal and photographed. The patient was leveled out, any residual fluid aspirated, and final checks made. There was no evidence of medical bleeding. We felt the operation was complete. Sponge and needle counts are correct. All ports were removed under direct visualization, pneumoperitoneum evacuated, and wounds closed with 0 Vicryl 3-0 Vicryl benzoin and Steri-Strips. Patient tolerated procedure well, extubated, taken to the recovery room in stable condition.
[2019-03-03 08:41] VITALS: BP 124/77
--- NOTE | 2019-03-03 09:15 | PDOC DISCHARGE SUMMARY ---
General - Admit/Disc Date/PCP Admission Date/Primary Care Provider: 03/02/19 12:53 CELE HOLCOMB MD Discharge Date: 03/03/19 - Discharge Diagnosis Final Diagnosis: Acute appendicitis - Assessment Summary: Patient is a 38-year-old white female presents emergency department complaining of acute onset abdominal pain. She is found to have right lower quadrant tenderness, and a mild leukocytosis. CT scan of the abdomen revealed findings consistent with acute appendicitis. Patient was evaluated by the surgicalist, admitted to the surgical service then taken to the operating room by Dr. Hernandez where she underwent laparoscopic appendectomy. She was found to have acute suppurative appendicitis. There was no evidence of perforation. No drain was placed. She tolerated the operation well. She had no postoperative problems. She voided without difficulty, and her pain was managed. By the first postoperative day she was ready for discharge home. - Additional Information Resuscitation Status: Full Code Discharge Diet: As Tolerated, Regular Discharge Activity: Activity As Tolerated, No Lifting Over 10 Pounds Referrals: CELE HOLCOMB MD [Primary Care Provider] - Follow up as needed Home Medications: Etonogestrel/Ethinyl Estradiol [Nuvaring Vaginal Ring] 1 each VG ASDIR PRN 03/02/19 Fluticasone/Salmeterol [Advair 100-50 Diskus 14 Dose/Diskus] 1 inh IH Q12 03/02/19 Metformin HCl [Glucophage 500 mg Tablet] 500 mg PO QHS 03/02/19 Vit 87/Iron/Folic/Dha [Prenate Mini Softgel] 1 cap PO DAILY 03/02/19 History of Present Illiness History of Present Illness: CIELO LLOYD is a 38 year old female Presents emergency department via ground rescue complaining of acute onset abdominal pain late last night-early this morning. On further inquiry, patient states she is been having some crampy abdominal pain for 3 days. She has had nausea, vomiting and a loose stool earlier this morning. She denies history of trauma, previous episodes of abdominal pain, or contact with people with gastroenteritis. She was seen in the emergency department where she is found to have right lower quadrant tenderness and a mild leukocytosis. CT scan of the abdomen pelvis with IV contrast only revealed findings consistent with acute appendicitis. Surgery was consulted, patient was evaluated, advised admission.. Hospital summary: Please see entry above Plan: Patient will be discharged home. She will take Toradol as needed pain, prescription provided. She may shower. Will follow-up with [facility] in 1 to 2 weeks, and call for an appointment tomorrow, March 04. Physical Exam Vital Signs: Temp Pulse Resp BP Pulse Ox 98.7 F 76 18 124/77 97 03/03/19 08:39 03/03/19 08:39 03/03/19 08:39 03/03/19 08:39 03/03/19 08:39 Intake & Output 03/02/19 03/03/19 03/04/19 06:59 06:59 06:59 Intake Total 4510 Output Total 405 Balance 4105 Weight 71.6 kg Results Laboratory Results: WBC 11.6 10^3/uL (4.0-10.5) H 03/02/19 10:50 RBC 4.32 10^6/uL (3.72-5.28) 03/02/19 10:50 Hgb 13.4 g/dL (12.0-15.5) 03/02/19 10:50 Hct 38.6 % (36.0-47.0) 03/02/19 10:50 MCV 89 fl (80-97) 03/02/19 10:50 MCH 30.9 pg (27.0-33.4) 03/02/19 10:50 MCHC 34.6 g/dL (32.0-36.0) 03/02/19 10:50 RDW 13.0 % (11.5-14.0) 03/02/19 10:50 Plt Count 231 10^3/uL (150-450) 03/02/19 10:50 Lymph % (Auto) 11.6 % (13-45) L 03/02/19 10:50 Titus % (Auto) 5.6 % (3-13) 03/02/19 10:50 Eos % (Auto) 0.3 % (0-6) 03/02/19 10:50 Baso % (Auto) 0.4 % (0-2) 03/02/19 10:50 Absolute Neuts (auto) 9.5 10^3/uL (1.7-8.2) H 03/02/19 10:50 Absolute Lymphs (auto) 1.4 10^3/uL (0.5-4.7) 03/02/19 10:50 Absolute Monos (auto) 0.7 10^3/uL (0.1-1.4) 03/02/19 10:50 Absolute Eos (auto) 0.0 10^3/uL (0.0-0.6) 03/02/19 10:50 Absolute Basos (auto) 0.0 10^3/uL (0.0-0.2) 03/02/19 10:50 Seg Neutrophils % 82.1 % (42-78) H 03/02/19 10:50 Sodium 138.0 mmol/L (137-145) 03/02/19 10:50 Potassium 4.0 mmol/L (3.6-5.0) 03/02/19 10:50 Chloride 106 mmol/L (98-107) 03/02/19 10:50 Carbon Dioxide 20 mmol/L (22-30) L 03/02/19 10:50 Anion Gap 12 (5-19) 03/02/19 10:50 BUN 13 mg/dL (7-20) 03/02/19 10:50 Creatinine 0.57 mg/dL (0.52-1.25) 03/02/19 10:50 Est GFR ( Amer) > 60 (>60) 03/02/19 10:50 Est GFR (MDRD) Non-Af > 60 (>60) 03/02/19 10:50 Glucose 110 mg/dL (75-110) 03/02/19 10:50 Calcium 9.2 mg/dL (8.4-10.2) 03/02/19 10:50 Total Bilirubin 0.7 mg/dL (0.2-1.3) 03/02/19 10:50 Direct Bilirubin 0.0 mg/dL (0.0-0.4) 03/02/19 10:50 Neonat Total Bilirubin Not Reportable 03/02/19 10:50 Neonat Direct Bilirubin Not Reportable 03/02/19 10:50 Neonat Indirect Bili Not Reportable 03/02/19 10:50 AST 25 U/L (14-36) 03/02/19 10:50 ALT 18 U/L (<35) 03/02/19 10:50 Alkaline Phosphatase 68 U/L (38-126) 03/02/19 10:50 Total Protein 7.8 g/dL (6.3-8.2) 03/02/19 10:50 Albumin 4.7 g/dL (3.5-5.0) 03/02/19 10:50 Lipase 16.2 U/L (23-300) L 03/02/19 10:50 Urine Color YELLOW 03/02/19 10:25 Urine Appearance SLIGHTLY-CLOUDY 03/02/19 10:25 Urine pH 6.0 (5.0-9.0) 03/02/19 10:25 Ur Specific Wallace 1.028 03/02/19 10:25 Urine Protein 30 mg/dL (NEGATIVE) H 03/02/19 10:25 Urine Glucose (UA) NEGATIVE mg/dL (NEGATIVE) 03/02/19 10:25 Urine Ketones 20 mg/dL (NEGATIVE) H 03/02/19 10:25 Urine Blood NEGATIVE (NEGATIVE) 03/02/19 10:25 Urine Nitrite NEGATIVE (NEGATIVE) 03/02/19 10:25 Urine Bilirubin NEGATIVE (NEGATIVE) 03/02/19 10:25 Urine Urobilinogen NEGATIVE mg/dL (<2.0) 03/02/19 10:25 Ur Leukocyte Esterase NEGATIVE (NEGATIVE) 03/02/19 10:25 Urine WBC (Auto) 1 /HPF 03/02/19 10:25 Urine RBC (Auto) 2 /HPF 03/02/19 10:25 Squamous Epi Cells Auto 2 /HPF 03/02/19 10:25 Urine Mucus (Auto) MANY /LPF 03/02/19 10:25 Urine Ascorbic Acid NEGATIVE (NEGATIVE) 03/02/19 10:25 Urine HCG, Qual NEGATIVE (NEGATIVE) 03/02/19 10:25 Impressions: Abdomen/Pelvis CT 03/02/19 10:19 IMPRESSION: Acute appendicitis. Report called to the attending physician in the emergency room
== END 2019-03-03 09:38 | disposition home or self-care (01) ==
LOC: EEVIPCON 10:01 → ER 10:01 → INTOOBSV 12:53 → EH 12:53 → 4S 16:07
PROVIDERS: ADMIT Surgery; ATTEND Surgery
PROC: 0DTJ4ZZ Resection of Appendix, Percutaneous Endoscopic Approach (ICD-10-PCS; principal; 2019-03-02 14:00)
DX: K35.30 Acute appendicitis with localized peritonitis, without perforation or gangrene (principal); E86.0 Dehydration; I25.10 Atherosclerotic heart disease of native coronary artery without angina pectoris; Z87.19 Personal history of other diseases of the digestive system; Z97.5 Presence of (intrauterine) contraceptive device; Z87.42 Personal history of other diseases of the female genital tract
CPT/HCPCS: 99285; 96374; 96375; 36415; 83690; 85025; 81025; 80053; 81001; 88304 ×2; 74177; 94799; 00840; 44970; G0378 ×3; A6266; J2250; J0690; J3490 ×3; J1100; J1885 ×2; J3010; J2270; J0330; J2405; J7060; J7120; J2704; 840; 88307